=== PATIENT | male | born 1970 ===

== ENCOUNTER 2017-02-06 09:49 | Observation (INO) | payer OTHER ==
[2017-02-06 10:11] VITALS: BMI 26.2
--- NOTE | 2017-02-06 11:31 | RAD ---
HISTORY: COMPARISON: No prior. TECHNIQUE: Chest PA and lateral FINDINGS: LINES AND TUBES: None. LUNG AND PLEURA: The lungs are well inflated and clear. HEART AND MEDIASTINUM: The heart is not enlarged. The hilar and mediastinal contours are within normal limits. SKELETAL STRUCTURES: The bony structures are within normal limits for the patient's age. VISUALIZED UPPER ABDOMEN: Normal. OTHER FINDINGS: None. IMPRESSION: No acute findings.
[2017-02-06 11:52] LABS: BASO % 0.5 % (0.0-2.0); EOS % 0.5 % (0.0-4.0); HEMATOCRIT 43.7 % (35.0-51.0); LYMPH # 1.4 K/uL (1.0-4.3); LYMPH % 28.4 % (20.0-40.0); MEAN CELL VOLUME 85.9 fl (80.0-94.0); MEAN CORPUSCULAR HEMOGLOBIN 29.7 pg (27.0-31.0); MEAN CORPUSCULAR HGB CONC 34.6 g/dL (33.0-37.0); MONO # 0.8 K/uL (0.0-0.8); MONO % 16.5 % (0.0-10.0); NEUT # 2.7 K/uL (1.8-7.0); NEUT % 54.1 % (50.0-75.0); NRBC % 0.2 % (0.0-0.0); WHITE BLOOD COUNT 4.9 K/uL (4.8-10.8)
[2017-02-06 12:04] LABS: PARTIAL THROMBOPLASTIN TIME 29.5 Seconds (25.6-37.1)
[2017-02-06 12:12] LABS: ALKALINE PHOSPHATASE 54 U/L (38-126); ALT/SGPT 46 U/L (21-72); AST/SGOT 38 U/L (17-59); BILIRUBIN,TOTAL 0.7 mg/dl (0.2-1.3); BLOOD UREA NITROGEN 11 mg/dl (9-20); CALCIUM 9.5 mg/dL (8.4-10.2); CARBON DIOXIDE 25 mmol/L (22-30); CHLORIDE 105 mmol/L (98-107); GFR AFRICAN-AMERICAN > 60; GLUCOSE,RANDOM 96 mg/dL (75-110); POTASSIUM 3.8 MMOL/L (3.6-5.0); SODIUM 142 mmol/l (132-148); TOTAL PROTEIN 8.8 G/DL (6.3-8.2)
[2017-02-06 12:17] LABS: ALB/GLOB RATIO 1.2 (1.0-2.1)
--- NOTE | 2017-02-06 12:54 | ED PDOC ---
HPI: Chest Pain Time Seen by Provider: 02/06/17 10:42 Chief Complaint (Nursing): Chest Pain Chief Complaint (Provider): chest pain History Per: Patient History/Exam Limitations: no limitations Additional Complaint(s): 47yo M in ED for eval of chest pain worsened in past 8days but has noted intermittent chest pain x "couple months". states pain begins in left sided chest pain with radiation of pain to he neck and the left arm without weakness/ numbness. admits to headache with CP and states she develops the chest pain he feel"hot" without diaphoresis. states that CP radiates to the back. denies dizziness, vision changes nausea or vomiting denies epigastric pain. 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 pt denies any other medical problems.negative for smoking, drug use or alcohol abuse. Past Medical History Reviewed: Historical Data, Nursing Documentation, Vital Signs Vital Signs: Last Vital Signs Temp 98.3 F 02/06/17 10:10 Pulse 91 H 02/06/17 10:36 Resp 20 02/06/17 10:10 BP 120/81 02/06/17 10:10 Pulse Ox 97 02/06/17 13:07 - Medical History PMH: Fractures (left femur about 2-3 years ago) - Surgical History Surgical History: Cholecystectomy - Family History Family History: States: Unknown Family Hx - Immunization History Hx Tetanus Toxoid Vaccination: No Hx Influenza Vaccination: No Hx Pneumococcal Vaccination: No - Home Medications Home Medications: Ambulatory Orders Medication Instructions Recorded Naproxen [Naprosyn] 500 mg PO BID #20 tab 09/18/15 oxyCODONE/Acetaminophen [Percocet 1 tab PO QID PRN #10 tab 09/18/15 5/325 mg Tab] traMADol [Ultram] 50 mg PO BID 09/19/15 oxyCODONE/Acetaminophen [Percocet 1 ea PO Q6H PRN #15 tab 05/02/16 5/325 mg Tab] - Allergies Allergies/Adverse Reactions: Allergies Allergy/AdvReac Type Severity Reaction Status Date / Time No Known Allergies Allergy Verified 02/06/17 10:24 KRISTEN Risk Score for UA/NSTEMI - KRISTEN Risk Score Age > 64: NO 3 or more CAD Risk Factors: NO Known CAD (Stenosis greater than 50%): NO Aspirin use in past 7 days: NO Severe Angina: NO EKG ST changes greater than 0.5mm: NO Positive Cardiac Marker: NO KRISTEN Score: 0 Risk %: 5% Curb-65 Severity Score - CURB-65 Severity Score Confusion: No Bun >19mg/dl (>7mmol/L): No Respiratory Rate greater than/equal to 30: No Systolic BP <90 or Diastolic BP less than/equal 60mmHg: No Age >64: No Curb-65 Score: 0 Percentage 30-day mortality: 0.6% Wells Criteria for PE - Wells Criteria for Pulmonary Embolism Clinical Signs and Symptoms of DVT: No P.E is #1 Diagnosis, or Equally Likely: No Heart Rate >100: No Immobilization at least 3 days;Surgery previous 4 weeks: No Previous, objectively diagnosed PE or DVT: No Hemoptysis: No Malignancy w/treatment within 6 months, or palliative: No Total Score: 0 Review of Systems ROS Statement: Except As Marked, All Systems Reviewed And Found Negative Constitutional: Negative for: Fever, Chills Cardiovascular: Positive for: Chest Pain. Negative for: Palpitations, Orthopnea , Paroxysmal Noc. Dyspnea Respiratory: Negative for: Cough, Shortness of Breath Gastrointestinal: Negative for: Nausea, Vomiting, Abdominal Pain Physical Exam - Reviewed Nursing Documentation Reviewed: Yes Vital Signs Reviewed: Yes - Physical Exam Appears: Positive for: Non-toxic, No Acute Distress Head Exam: Positive for: ATRAUMATIC, NORMAL INSPECTION, NORMOCEPHALIC Skin: Positive for: Normal Color, Warm, DRY Eye Exam: Positive for: EOMI, Normal appearance, PERRL ENT: Positive for: Normal ENT Inspection Neck: Positive for: Normal, Painless ROM Cardiovascular/Chest: Positive for: Regular Rate, Rhythm, Chest Non Tender. Negative for: Murmur, Bradycardia, Tachycardia, Ectopy, Friction Rub, Irregularly Irregular Respiratory: Positive for: CNT, Normal Breath Sounds Gastrointestinal/Abdominal: Positive for: Normal Exam, Bowel Sounds, Soft. Negative for: Tenderness Back: Positive for: Normal Inspection Extremity: Positive for: Normal ROM Neurologic/Psych: Positive for: Alert, Oriented - Laboratory Results Result Diagrams: 02/06/17 10:40 02/06/17 10:40 - ECG ECG: Positive for: Interpreted By Me ECG Rhythm: Positive for: Normal QRS, Normal ST Segment Interpretation Of Abn EKG: EKG reviewed with MD Shira Interpretation Of ECG: q wave note din inferior lead O2 Sat by Pulse Oximetry: 97 - Radiology X-Ray: Read By Radiologist X-Ray Interpretation: No Acute Disease - Progress ED Course And Treament: Pt will be evulated for acute chest pain. PT given aSA 81mg and Nitroglycerin SL. Tylenol for DELATORRE. Orders Category Date Time Status ELECTROCARDIOGRAM Stat Cardiology 02/06/17 10:52 Ordered COMP METABOLIC PANEL Stat Chem 02/06/17 10:40 Completed TROPONIN I Stat Chem 02/06/17 10:40 Completed EKG-ED [EDNURTX] STAT ED Care 02/06/17 10:53 Active CHEST TWO VIEWS (PA/LAT) [RAD] Stat Exams 02/06/17 10:53 Completed CBC (WITH DIFFERENTIAL) Stat AVRIL 02/06/17 10:40 Completed PARTIAL THROMBOPLASTIN TIME [COAG] Stat AVRIL 02/06/17 10:40 Completed PROTHROMBIN TIME [COAG] Stat AVRIL 02/06/17 10:40 Completed Acetaminophen [Tylenol 325mg tab] Med 02/06/17 11:20 Discontinued 650 mg .ROUTE .STK-MED ONE Acetaminophen [Tylenol 325mg tab] Med 02/06/17 11:15 Discontinued 650 mg PO STAT STA Aspirin [Aspirin Chewable] Med 02/06/17 11:13 Discontinued 81 mg .ROUTE .STK-MED ONE Aspirin [Aspirin Chewable] Med 02/06/17 10:52 Discontinued 81 mg PO STAT STA Nitroglycerin [Nitrostat SL Tab] Med 02/06/17 11:12 Discontinued 0.4 mg SL .STK-MED ONE Nitroglycerin [Nitrostat SL Tab] Med 02/06/17 10:57 Discontinued 0.4 mg SL 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 Pt will benefit from observation for CP with repeat labs and EKG in 24hrs. admitting MD herminio 02/06/17 02/06/17 02/06/17 10:40 10:40 10:40 WBC 4.9 RBC 5.09 Hgb 15.1 Hct 43.7 MCV 85.9 MCH 29.7 MCHC 34.6 RDW 13.0 Plt Count 251 MPV 8.0 Neut % (Auto) 54.1 Lymph % (Auto) 28.4 [place] % (Auto) 16.5 H Eos % (Auto) 0.5 Baso % (Auto) 0.5 Neut # 2.7 Lymph # 1.4 [place] # 0.8 Eos # 0.0 Baso # 0.0 PT 11.0 INR 1.0 APTT 29.5 Sodium 142 Potassium 3.8 Chloride 105 Carbon Dioxide 25 Anion Gap 16 BUN 11 Creatinine 0.7 L Est GFR ( Amer) > 60 Est GFR (Non-Af Amer) > 60 Random Glucose 96 Calcium 9.5 Total Bilirubin 0.7 AST 38 ALT 46 Alkaline Phosphatase 54 Troponin I < 0.0120 Total Protein 8.8 H Albumin 4.9 Globulin 4.0 H Albumin/Globulin Ratio 1.2 Disposition - Clinical Impression Clinical Impression: Chest pain - Patient ED Disposition Is Patient to be Admitted: Yes - Disposition Disposition Time: 13:07 Condition: STABLE Forms: [facility] (Divehi) - Pt Status Changed To: Hospital Disposition Of: Observation - POA Present On Arrival: None
--- NOTE | 2017-02-06 17:09 | CP.PCM.HP ---
History of Present Illness - History of Present Illness History of Present Illness: 47 yo M with no PMH presented to ER with on and off left sided chest pain , pressure like , in the past 8 days. States that pain begins in left side of chest and radiates to neck and left arm with feeling of hot , no weakness or numbness.He states that pain is worse when he lies on the left side of the chest and worse with palpation but not worse with deep inspiration. Denies any DELATORRE, dizziness, blurry vision , fever, chills, nausea or vomiting , abdominal pain , SOB, cough , trauma to the chest . Allergies :NKDA PMH ; None Medications; None Family history :mother had HTN Surgery ; cholecystectomy , left femur surgery, some abdominal venous surgery ? Social history ; lives in [place] with family, does not work, disabled , denies smoking, ETOH or drug abuse ROS; 14 point review of system negative except above PMD ; None Code status: full code Present on Admission - Present on Admission Any Indicators Present on Admission: No Review of Systems - Review of Systems All systems: reviewed and no additional remarkable complaints except Past Patient History - Infectious Disease Hx of Infectious Diseases: None - Tetanus Immunizations Tetanus Immunization: Unknown - Past Medical History & Family History Past Medical History?: No Past Family History: Reviewed and not pertinent - Past Social History Smoking Status: Former Smoker Chewing Tobacco Use: No Cigar Use: No Alcohol: Social Drugs: Denies Home Situation {Lives}: With Family Domestic Violence: Negative - MUSCULOSKELETAL/RHEUMATOLOGICAL Hx Fractures: Yes (left femur about 2-3 years ago) - PSYCHIATRIC Hx Substance Use: No - SURGICAL HISTORY Hx Cholecystectomy: Yes - ANESTHESIA Hx Anesthesia: Yes Hx Anesthesia Reactions: No Meds Allergies/Adverse Reactions: Allergies Allergy/AdvReac Type Severity Reaction Status Date / Time No Known Allergies Allergy Verified 02/06/17 10:24 Physical Exam - Constitutional Appears: Non-toxic, No Acute Distress - Head Exam Head Exam: ATRAUMATIC, NORMAL INSPECTION, NORMOCEPHALIC - Eye Exam Eye Exam: EOMI, Normal appearance, PERRL Pupil Exam: NORMAL ACCOMODATION - ENT Exam ENT Exam: Mucous Membranes Moist, Normal Exam - Neck Exam Neck exam: Positive for: Full Rom, Normal Inspection - Respiratory Exam Respiratory Exam: Clear to Auscultation Bilateral, NORMAL BREATHING PATTERN. absent: Rales, Rhonchi, Wheezes - Cardiovascular Exam Cardiovascular Exam: REGULAR RHYTHM, RRR, +S1, +S2. absent: JVD - GI/Abdominal Exam GI & Abdominal Exam: Normal Bowel Sounds, Soft. absent: Distended, Guarding, Rebound, Tenderness - Rectal Exam Rectal Exam: Deferred - Extremities Exam Extremities exam: Positive for: normal capillary refill, normal inspection, pedal pulses present. Negative for: calf tenderness, pedal edema - Back Exam Back exam: NORMAL INSPECTION - Neurological Exam Neurological exam: Alert, CN II-XII Intact, Oriented x3, Reflexes Normal - Psychiatric Exam Psychiatric exam: Normal Affect, Normal Mood - Skin Skin Exam: Dry, Intact, Normal Color, Warm Results - Vital Signs Recent Vital Signs: Last Vital Signs Temp 98.3 F 02/06/17 10:10 Pulse 91 H 02/06/17 10:36 Resp 20 02/06/17 10:10 BP 120/81 02/06/17 10:10 Pulse Ox 97 02/06/17 13:24 - Labs Result Diagrams: 02/06/17 10:40 02/06/17 10:40 Labs: Laboratory Results - last 24 hr 02/06/17 02/06/17 02/06/17 10:40 10:40 10:40 WBC 4.9 RBC 5.09 Hgb 15.1 Hct 43.7 MCV 85.9 MCH 29.7 MCHC 34.6 RDW 13.0 Plt Count 251 MPV 8.0 Neut % (Auto) 54.1 Lymph % (Auto) 28.4 [place] % (Auto) 16.5 H Eos % (Auto) 0.5 Baso % (Auto) 0.5 Neut # 2.7 Lymph # 1.4 [place] # 0.8 Eos # 0.0 Baso # 0.0 PT 11.0 INR 1.0 APTT 29.5 Sodium 142 Potassium 3.8 Chloride 105 Carbon Dioxide 25 Anion Gap 16 BUN 11 Creatinine 0.7 L Est GFR ( Amer) > 60 Est GFR (Non-Af Amer) > 60 Random Glucose 96 Calcium 9.5 Total Bilirubin 0.7 AST 38 ALT 46 Alkaline Phosphatase 54 Troponin I < 0.0120 Total Protein 8.8 H Albumin 4.9 Globulin 4.0 H Albumin/Globulin Ratio 1.2 - EKG Data EKG shows normal: Sinus rhythm Rate: Normal - Impressions Impression: q WAVE IN INFERIOR LEADS Assessment & Plan (1) Chest pain Status: Acute Comment: place patient under observation for monitoring, less likely cardiac in origin. Cycle troponins and EKG. ASA. CXR showed no acute pathology. EKG showed qwave in inferior leads. Lipid panel
[2017-02-06 17:40] LABS: CHOLESTEROL 139 mg/dL (0-199)
[2017-02-07 08:13] VITALS: RESP 14; TEMP 98.2
--- NOTE | 2017-02-07 11:48 | CARD ---
APPROVED REPORT EKG Measurement Heart [id number] [place] 150P1 [id number] <Conclusion> Normal sinus rhythm Inferior infarct, age undetermined Abnormal ECG
--- NOTE | 2017-02-07 11:52 | CARD ---
APPROVED REPORT EKG Measurement Heart [id number] 160P30 [id number] <Conclusion> Normal sinus rhythm Inferior infarct, age undetermined Abnormal ECG
--- NOTE | 2017-02-07 11:59 | CARD ---
APPROVED REPORT EKG Measurement Heart [id number] [place] 154P16 [id number] <Conclusion> Normal sinus rhythm Possible Inferior infarct, age undetermined Abnormal ECG
[2017-02-07 12:57] VITALS: BP 118/79; PULSE 78; O2SAT 98
--- NOTE | 2017-02-07 16:03 | CP.PCM.DIS ---
Provider - Provider Date of Admission: 02/06/17 14:26 Attending physician: Rochelle Ulloa MD Primary care physician: none Consults: none Time Spent in preparation of Discharge (in minutes): 15 Diagnosis - Discharge Diagnosis (1) Chest pain Status: Acute Hospital Course - Lab Results Lab Results: Most Recent Lab Values WBC 4.9 K/uL (4.8-10.8) 02/06/17 10:40 RBC 5.09 Mil/uL (4.40-5.90) 02/06/17 10:40 Hgb 15.1 g/dL (12.0-18.0) 02/06/17 10:40 Hct 43.7 % (35.0-51.0) 02/06/17 10:40 MCV 85.9 fl (80.0-94.0) 02/06/17 10:40 MCH 29.7 pg (27.0-31.0) 02/06/17 10:40 MCHC 34.6 g/dL (33.0-37.0) 02/06/17 10:40 RDW 13.0 % (11.5-14.5) 02/06/17 10:40 Plt Count 251 K/uL (130-400) 02/06/17 10:40 MPV 8.0 fl (7.2-11.7) 02/06/17 10:40 Neut % (Auto) 54.1 % (50.0-75.0) 02/06/17 10:40 Lymph % (Auto) 28.4 % (20.0-40.0) 02/06/17 10:40 [place] % (Auto) 16.5 % (0.0-10.0) H 02/06/17 10:40 Eos % (Auto) 0.5 % (0.0-4.0) 02/06/17 10:40 Baso % (Auto) 0.5 % (0.0-2.0) 02/06/17 10:40 Neut # 2.7 K/uL (1.8-7.0) 02/06/17 10:40 Lymph # 1.4 K/uL (1.0-4.3) 02/06/17 10:40 [place] # 0.8 K/uL (0.0-0.8) 02/06/17 10:40 Eos # 0.0 K/uL (0.0-0.7) 02/06/17 10:40 Baso # 0.0 K/uL (0.0-0.2) 02/06/17 10:40 PT 11.0 Seconds (9.8-13.1) 02/06/17 10:40 INR 1.0 (0.9-1.2) 02/06/17 10:40 APTT 29.5 Seconds (25.6-37.1) 02/06/17 10:40 Sodium 142 mmol/l (132-148) 02/06/17 10:40 Potassium 3.8 MMOL/L (3.6-5.0) 02/06/17 10:40 Chloride 105 mmol/L (98-107) 02/06/17 10:40 Carbon Dioxide 25 mmol/L (22-30) 02/06/17 10:40 Anion Gap 16 (10-20) 02/06/17 10:40 BUN 11 mg/dl (9-20) 02/06/17 10:40 Creatinine 0.7 mg/dL (0.8-1.5) L 02/06/17 10:40 Est GFR ( Amer) > 60 02/06/17 10:40 Est GFR (Non-Af Amer) > 60 02/06/17 10:40 Random Glucose 96 mg/dL (75-110) 02/06/17 10:40 Calcium 9.5 mg/dL (8.4-10.2) 02/06/17 10:40 Total Bilirubin 0.7 mg/dl (0.2-1.3) 02/06/17 10:40 AST 38 U/L (17-59) 02/06/17 10:40 ALT 46 U/L (21-72) 02/06/17 10:40 Alkaline Phosphatase 54 U/L (38-126) 02/06/17 10:40 Troponin I < 0.0120 ng/mL (0.00-0.120) 02/07/17 04:31 Total Protein 8.8 G/DL (6.3-8.2) H 02/06/17 10:40 Albumin 4.9 g/dL (3.5-5.0) 02/06/17 10:40 Globulin 4.0 gm/dL (2.2-3.9) H 02/06/17 10:40 Albumin/Globulin Ratio 1.2 (1.0-2.1) 02/06/17 10:40 Triglycerides 141 mg/DL (0-149) 02/06/17 17:18 Cholesterol 139 mg/dL (0-199) 02/06/17 17:18 LDL Cholesterol Direct 79 mg/dL (0-129) 02/06/17 17:18 HDL Cholesterol 29 MG/DL (30-70) L 02/06/17 17:18 - Hospital Course Hospital Course: 47 yo M with no PMH presented to ER with on and off left sided chest pain , pressure like , in the past 8 days. States that pain begins in left side of chest and radiates to neck and left arm with feeling of hot , no weakness or numbness.He states that pain is worse when he lies on the left side of the chest and worse with palpation but not worse with deep inspiration. Denies any DELATORRE, dizziness, blurry vision , fever, chills, nausea or vomiting , abdominal pain , SOB, cough , trauma to the chest. he has no family history of heart disease, does not drink or smoke. He was placed under observation in telemetry.Troponins were cycled x 3 were all negative and EKG showed no acute ST-T wave changes Most likely chest pain is musculoskeletal in nature , atypical chest pain .Will discharge patient home since ACs ruled out Advised follow up with CF and ASa 81 mg po daily outpatient exercise stress test recommended Discharge Exam - Head Exam Head Exam: ATRAUMATIC, NORMAL INSPECTION, NORMOCEPHALIC - Eye Exam Eye Exam: EOMI, Normal appearance, PERRL Pupil Exam: NORMAL ACCOMODATION - ENT Exam ENT Exam: Mucous Membranes Moist, Normal Exam - Neck Exam Neck exam: Full Rom, Normal Inspection - Respiratory Exam Respiratory Exam: Clear to PA & Lateral, NORMAL BREATHING PATTERN. absent: Rales, Rhonchi, Wheezes - Cardiovascular Exam Cardiovascular Exam: REGULAR RHYTHM, RRR, +S1, +S2. absent: JVD - GI/Abdominal Exam GI & Abdominal Exam: Normal Bowel Sounds, Soft. absent: Distended, Guarding, Rebound, Tenderness - Rectal Exam Rectal Exam: Deferred - Extremities Exam Extremities exam: normal capillary refill, normal inspection, pedal pulses present - Back Exam Back exam: NORMAL INSPECTION - Neurological Exam Neurological exam: Alert, CN II-XII Intact, Oriented x3, Reflexes Normal - Psychiatric Exam Psychiatric exam: Normal Affect, Normal Mood - Skin Skin Exam: Dry, Intact, Normal Color, Warm Discharge Plan - Follow Up Plan Condition: STABLE Disposition: HOME/ ROUTINE Patient education suggested?: Yes Instructions: Chest Pain (DC) Referrals: [facility] [Outside]
== END 2017-02-07 13:09 | disposition home or self-care (01) ==
LOC: H.ER 09:49 → H.ERHOLD 14:26
PROVIDERS: ADMIT Hospitalist; ATTEND Hospitalist
DX: R07.9 Chest pain, unspecified (principal); Z87.891 Personal history of nicotine dependence
CPT/HCPCS: 71020; 80053; 80061; 84484; 85025; 85610; 85730; 93005; 99285; G0378